=== PATIENT | male | born 1965 | race Caucasian/White ===

== ENCOUNTER → 2022-08-11 09:59 | Outpatient (CLI) | payer OTHER, SELFPAY ==
[2022-08-11 10:53] LABS: Add Manual Diff / Slide Review NO; Basophils Absolute Auto 0 /uL (0-100); Basophils Percent Auto 0.5 % (0-2); Eosinophils Absolute Auto 200 /uL (0-450); Eosinophils Percent Auto 3.8 % (2-4); Hematocrit 45.5 % (41-53); Hemoglobin 15.4 g/dL (13.5-17.5); Lymphocytes Absolute Auto 2500 /uL (1100-4500); Mean Corpuscular HGB Conc 33.8 % (30-36); Mean Corpuscular Hemoglobin 30.9 PG (26-34); Mean Corpuscular Volume 91.3 fL (80-100); Monocytes Absolute Auto 500 /uL (0-900); Neutrophils Absolute Auto 2600 /uL (1500-7000); Neutrophils Percent Auto 43.7 % (50-75); Platelet Count 231 X10^3/uL (150-400); Red Blood Cell Count 4.98 X10^6/uL (4.5-5.9); Red Cell Distribution Width 13.7 % (11.6-14.8); White Blood Cell Count 5.9 X10^3/uL (4.5-11.0)
[2022-08-11 18:54] LABS: Alanine Aminotransferase 89 IU/L (<50); Albumin 4.1 g/dL (3.5-5.0); Albumin Globulin Ratio 1.3 (1.0-2.8); Alkaline Phosphatase 66 U/L (38-126); Aspartate Aminotransferase 51 IU/L (17-59); BUN Creatinine Ratio 14.3 (6-22); Bilirubin Total 0.6 mg/dL (0.2-1.3); Blood Urea Nitrogen 16 mg/dL (9-20); Calcium 9.5 mg/dL (8.4-10.2); Carbon Dioxide 27 mmol/L (22-32); Chloride 105 mmol/L (98-107); Cholesterol 171 mg/dL (140-199); Estimated Glomerular Filt Rate > 60 mL/min (>60); Globulin 3.2 g/dL (1.7-4.1); Glucose 101 mg/dL (70-100); HDL Cholesterol 48 mg/dL (40-60); LDL Cholesterol Calculated 102 mg/dL (<100); Sodium 138 mmol/L (137-145); Total Protein 7.3 g/dL (6.3-8.2); Triglycerides 103 mg/dL (35-150)
[2022-08-11 18:56] LABS: HEMOLYSIS 16 (0-50); Potassium 4.1 mmol/L (3.4-5.1)
[2022-08-11 19:24] LABS: Prostate Specific Antigen 0.949 ng/mL (0.10-4.00)
== END ==
PROVIDERS: PCP Family Medicine; Referring Provider Family Medicine; Visit Provider Family Medicine
DX: Z00.00 Encounter for general adult medical examination without abnormal findings (principal)
CPT/HCPCS: 36415; 80053; 80061; 84153; 85025

== ENCOUNTER → 2023-03-10 10:16 | Outpatient (CLI) | payer OTHER, SELFPAY ==
--- NOTE | 2023-03-10 10:18 | DI.RAD.S_ITS ---
PROCEDURE: XR CERVICAL SPINE 2V OR 3V INDICATIONS: neck pain with radiculopathy TECHNIQUE: 3 view(s) of the cervical spine were acquired. COMPARISON: None. FINDINGS: Bones: No fractures or dislocations to the T1 level. There is straightening of normal cervical lordosis. Degenerative endplate changes are noted in lower cervical spine at C5-6 and C6-7 levels. The lateral masses of C1 appear intact on the odontoid view. No suspicious bony lesions. Soft tissues: No prevertebral soft tissue swelling. IMPRESSION: Degenerative disc disease in lower cervical spine. No cervical spine fracture or dislocation. Dictated by: Dominick Larson M.D. on 03/10/2023 at 16:18 Approved by: Dominick Larson M.D. on 03/10/2023 at 16:19
== END ==
PROVIDERS: PCP Family Medicine; Referring Provider Family Medicine; Visit Provider Family Medicine
DX: M50.322 Other cervical disc degeneration at C5-C6 level (principal)
CPT/HCPCS: 72040

== ENCOUNTER → 2023-11-10 09:19 | Outpatient (CLI) | payer OTHER, SELFPAY ==
[2023-11-10 12:38] LABS: Alanine Aminotransferase 53 IU/L (<50); Albumin 4.2 g/dL (3.5-5.0); Albumin Globulin Ratio 1.6 (1.0-2.8); Alkaline Phosphatase 76 U/L (38-126); Aspartate Aminotransferase 35 IU/L (17-59); BUN Creatinine Ratio 13.9 (6-22); Bilirubin Total 0.9 mg/dL (0.2-1.3); Blood Urea Nitrogen 15 mg/dL (9-20); Calcium 9.1 mg/dL (8.4-10.2); Carbon Dioxide 28 mmol/L (22-32); Chloride 106 mmol/L (98-107); Cholesterol 177 mg/dL (140-199); Estimated Glomerular Filt Rate > 60 mL/min (>60); Globulin 2.7 g/dL (1.7-4.1); Glucose 110 mg/dL (80-110); HDL Cholesterol 54 mg/dL (40-60); HEMOLYSIS < 15 (0-50); LDL Cholesterol Calculated 104 mg/dL (<100); Potassium 4.2 mmol/L (3.4-5.1); Sodium 138 mmol/L (137-145); Total Protein 6.9 g/dL (6.3-8.2); Triglycerides 93 mg/dL (35-150)
[2023-11-10 13:04] LABS: Prostate Specific Antigen 0.738 ng/mL (0.10-4.00)
== END ==
PROVIDERS: PCP Family Medicine; Referring Provider Family Medicine; Visit Provider Family Medicine
DX: Z00.00 Encounter for general adult medical examination without abnormal findings (principal); I10 Essential (primary) hypertension; N40.1 Benign prostatic hyperplasia with lower urinary tract symptoms; N13.8 Other obstructive and reflux uropathy
CPT/HCPCS: 36415; 80053; 80061; 84153

== ENCOUNTER 2023-11-12 11:33 | Day surgery (SDC) | payer OTHER, SELFPAY ==
[2023-11-12] MEDS: OXYMETAZOLINE NASAL SPRAY 30 ML 2 SPRAYS NASAL (13:17)
[2023-11-12] MEDS: LACTATED RINGERS 1,000 ML 42 ML IV (13:17)
[2023-11-12] MEDS: ACETAMINOPHEN 325 MG TABLET 975 MG PO (13:18)
[2023-11-12 13:21] VITALS: BP 137/92; PULSE 68; RESP 16; TEMP 36.1; O2SAT 97; BMI 29.8
--- NOTE | 2023-11-12 13:36 | P.OP_ITS ---
Operative Date/Time/Diagnoses Date of procedure: 11/12/23 Time of procedure: 14:59 Pre-op diagnosis: Left chronic maxillary sinusitis Post-op diagnosis: same Procedure & Clinicians Procedure: Left endoscopic maxillary antrostomy with tissue removal Same procedure as scheduled: Yes Indications: 58 Year old with the above diagnoses incompletely managed with medical therapy presents for the above procedure. Following discussion of the material risks benefits complications and alternatives, the patient elected to proceed. Surgeon: Frank Le Click Yes if Unassisted: Yes Anesthesia Type: General and Local Operative Notes Findings: Postoperative nasal cavity, with partial prior maxillary antrostomy enlarged by myself in all directions, also removed a scar band obstructing the antrostomy fr om prior. edematous mucosa throughout, tendency towards polyposis. Thick purulent solid and brown debris removed with instruments and irrigation from sinus, cultured. Postsurgical ethmoids not manipulated. Prior partial resection of anterior inferior turbinate and partial middle turbinate. Estimated Blood Loss (mL): 30 Procedure in detail: Following identification and confirmation of consent as well as preoperative Afrin nasal spray, the patient was brought to the operating room suite and placed in the supine position. General endotracheal anesthesia was administered. Under endoscopic guidance the posterior and anterior superior insertion of the left middle turbinate was then infiltrated with local anesthetic via spinal needle. The portions of residual uncinate process was identified with uncinectomy performed via the backbiting forceps and the microdebrider. Irrigation and instumentation removed a large amount of solid and purulent debris from within the maxillary sinus, along with portions of edematous and hypertrophied inflamed mucosa, overall enlarging the prior antrostomy significantly. Hemostasis with brief 1:1000 epi on pledgets, then focal areas of suction electrocautery on 10. The procedure completed, sponge and needle counts were correct and the patient was extubated in the operating room and taken to recovery room in stable condition without known complication. Complications: none Post-operative Condition: stable Disposition: same day surgery Plan for aftercare: Nasal saline every hour while awake, begin irrigations t.i.d. tomorrow. Tylenol alternating with Advil for pain control, oxycodone for breakthrough pain. Elevate head of bed, no nose blowing, no straining for 2 weeks.
--- NOTE | 2023-11-12 13:36 | PM.PREOP ---
Pre-operative Note Interval Note History & Physical reviewed/Exam performed by Physician: Yes Changes to H&P: No
--- NOTE | 2023-11-12 14:18 | SUR.OPER ---
Supine on padded OR bed, head on donut pillow, left arm secured on padded arm board at <90 degrees abduction, right arm padded and tucked on right side, legs uncrossed, safety belt at thigh, tape over blanket over lower legs.
[2023-11-12] MEDS: LIDOCAINE 1% W/EPI 20 ML INJ (14:23)
[2023-11-12] MEDS: EPINEPHrine 1 MG/ML 3 MG INJ (14:34)
[2023-11-12 15:07] VITALS: BP 141/86; PULSE 77; RESP 16; TEMP 36.1; O2SAT 95
[2023-11-12 15:11] VITALS: BP 134/88; PULSE 71; RESP 18; O2SAT 95
[2023-11-12 15:16] VITALS: BP 147/91; PULSE 67; RESP 17; O2SAT 93
[2023-11-12 15:23] VITALS: BP 145/94; PULSE 63; RESP 16; TEMP 36.2; O2SAT 93
[2023-11-12 15:28] VITALS: BP 143/94; PULSE 63; RESP 16; O2SAT 93
== END 2023-11-12 15:45 | disposition home or self-care (01) ==
PROVIDERS: PCP Family Medicine; Referring Provider Otolaryngology; Visit Provider Otolaryngology
PROC: (CPT 31231; principal; 2023-11-12 12:30)
DX: J32.0 Chronic maxillary sinusitis (principal)
CPT/HCPCS: 31267; 87070; 87075; 87077; 87147; 87205; J0171; J1100; J2250; J2405; J2704; J3010

== ENCOUNTER 2023-11-15 12:13 | Emergency (ER) | payer OTHER, SELFPAY ==
[2023-11-15 12:16] VITALS: BP 146/90; PULSE 92; RESP 18; TEMP 36.3; O2SAT 97; BMI 29.8
--- NOTE | 2023-11-15 12:27 | PC.NURSE ---
Bladder scan showing 394, educated patient meeting threshold for catheter, explained how enlarged bladder can cause constipation and can become a medical emergency especially given that patient states inability at this time to urinate. Patient does not want catheter, asking for suppository. Advised patient that provider recommended line and labs d/t protocol and specific complaint, educated that patient can decline any suggestion but that it can delay care. Nurse assigned to patient present for discussion.
--- NOTE | 2023-11-15 12:43 | DI.RAD.S_ITS ---
PROCEDURE: XR ACUTE ABDOMEN SERIES INDICATIONS: constipation TECHNIQUE: One view chest and two views of the abdomen were acquired. COMPARISON: None. FINDINGS: Surgical changes and devices: Surgical clips projecting over the pelvis.. Chest: Lungs are clear. Heart size is normal. No pleural effusions. No pneumoperitoneum. Abdomen: Bowel gas pattern is normal. Moderate stool burden. No suspicious calcifications. Visualized solid organ contours appear normal. Bones: No suspicious bony lesions. IMPRESSION: Moderate stool burden. Nonobstructive bowel gas pattern. Dictated by: Damion Rausch M.D. on 11/15/2023 at 13:25 Approved by: Damion Rausch M.D. on 11/15/2023 at 13:26
[2023-11-15 12:49] LABS: Add Manual Diff / Slide Review NO; Basophils Absolute Auto 0 /uL (0-100); Basophils Percent Auto 0.5 % (0-2); Eosinophils Absolute Auto 200 /uL (0-450); Hematocrit 43.2 % (41-53); Hemoglobin 14.7 g/dL (13.5-17.5); Lymphocytes Absolute Auto 2300 /uL (1100-4500); Lymphocytes Percent Auto 33.4 % (25-40); Mean Corpuscular Hemoglobin 31.4 PG (26-34); Mean Corpuscular Volume 92.5 fL (80-100); Monocytes Absolute Auto 600 /uL (0-900); Monocytes Percent Auto 8.5 % (3-14); Neutrophils Absolute Auto 3800 /uL (1500-7000); Neutrophils Percent Auto 54.6 % (50-75); Platelet Count 260 X10^3/uL (150-400); Red Blood Cell Count 4.67 X10^6/uL (4.5-5.9); Red Cell Distribution Width 13.6 % (11.6-14.8)
[2023-11-15 12:59] LABS: Alanine Aminotransferase 49 IU/L (<50); Albumin 4.1 g/dL (3.5-5.0); Albumin Globulin Ratio 1.5 (1.0-2.8); Alkaline Phosphatase 73 U/L (38-126); Aspartate Aminotransferase 32 IU/L (17-59); BUN Creatinine Ratio 20.4 (6-22); Bilirubin Total 0.5 mg/dL (0.2-1.3); Blood Urea Nitrogen 20 mg/dL (9-20); Calcium 8.4 mg/dL (8.4-10.2); Carbon Dioxide 22 mmol/L (22-32); Chloride 110 mmol/L (98-107); Estimated Glomerular Filt Rate > 60 mL/min (>60); Globulin 2.8 g/dL (1.7-4.1); Glucose 110 mg/dL (80-110); HEMOLYSIS 23 (0-50); Lipase 83 U/L (23-300); Potassium 3.8 mmol/L (3.4-5.1); Sodium 138 mmol/L (137-145); Total Protein 6.9 g/dL (6.3-8.2)
--- NOTE | 2023-11-15 13:51 | ED.ABDPAIN ---
HPI - Abdominal Pain General Chief Complaint: Abdominal Pain Stated Complaint: Constipation, Can't Urinate, post-surgery Time Seen by Provider: 11/15/23 13:50 Source: patient, family and RN notes reviewed Mode of arrival: Ambulatory Limitations: no limitations History of Present Illness HPI narrative: 58-year-old male with history of hypertension and recent sinus surgery who presents with complaint of constipation. Patient states he had sinus surgery several days ago he took 3 tablets of ibuprofen when she states normally constipated him in his more than what he normally takes. He states since then he has had bowel movements but they have been constipated and uncomfortable. He had a bowel movement yesterday which was pebbly moderate to small amount. He states today he feels like he needs to have a bowel movement but has not been able to he has a lot of pressure in the rectal area. He states it is uncomfortable. He has not had any fevers no nausea or vomiting. He states he feels little bit bloated. He denies any abdominal pain anteriorly. Patient denies any urinary symptoms no dysuria urgency or frequency. Patient states he has not tried anything [id number] besides Colace from 10 years ago. Patient does feel anxious about the constipation as he had an episode in the past where when he finally had a bowel movement he had a rip or tear of the rectal area and had bleeding for several days. Patient is on medication for blood pressure daily, denies any other prior abdominal surgeries states sinus surgeries his only prior surgery but did have anesthesia with this. No known drug allergies. He has not been taking any narcotics. No tobacco, no regular alcohol, no recreational drugs. Related Data Home Medications Medication Instructions Recorded Confirmed aspirin 81 mg tablet,delayed 81 mg PO DAILY 08/11/22 11/12/23 release (Adult Low Dose Aspirin) azelastine 137 mcg (0.1 %) nasal 1 spray intranasal DAILY 08/11/22 11/12/23 spray aerosol buspirone 10 mg tablet 10 mg PO DAILY 08/11/22 11/12/23 fluticasone propionate [Flonase] 2 spray intranasal DAILY 08/11/22 11/12/23 magnesium-potassium 99 mg- 90 mg 1 cap PO DAILY 08/11/22 11/12/23 capsule Previous Rx's Medication Instructions Recorded hydrochlorothiazide 25 mg tablet 25 mg PO DAILY #90 tabs 08/03/23 losartan 100 mg tablet 100 mg PO DAILY #90 tabs 09/08/23 tamsulosin 0.4 mg capsule 0.4 mg PO BID #180 caps 11/04/23 Allergies Allergy/AdvReac Type Severity Reaction Status Date / Time No Known Drug Allergies Allergy Verified 11/15/23 12:16 Review of Systems Review of Systems ROS Unobtainable: All systems reviewed & are unremarkable except as noted in HPI and below Patient History Medical History Esophageal reflux Benign essential tremor Recurrent otitis media Cervical spondylolysis Compression fracture of body of thoracic vertebra Anxiety with flying Colon polyps BPH (benign prostatic hyperplasia) Hypertension Well adult exam Acute otitis media Social History household members: spouse Smoking Status: Never smoker alcohol intake: current Smoking Status: Never smoker alcohol intake frequency: 0-2 drinks per day Substance Use Type: does not use Exam Narrative Exam Narrative: GENERAL: Alert and oriented x three, male in moderate distress. HEENT: Head normocephalic, atraumatic, EOMI, pupils reactive, face symmetric, moist mucous membranes NECK: Supple, full range of motion CARDIOVASCULAR: Regular rate and rhythm without murmurs, rubs or gallops. RESPIRATORY: Breath sounds equal bilaterally, no wheezes rales or rhonchi. ABDOMEN: Soft, nontender. Slightly distended. Normoactive bowel sounds all 4 quadrants. No guarding or rebound, rigidity, no mass : No CVA tenderness EXTREMITIES: Normal range of motion, no clubbing or edema. Neurovascularly intact NEUROLOGICAL: Cranial nerves II through XII grossly intact. Moving all extremities SKIN: Warm, dry, no petechiae, no rashes or lesions. Initial Vital Signs Initial Vital Signs: Vital Signs Temperature 97.4 F L 11/15/23 12:16 Pulse Rate 92 H 11/15/23 12:16 Respiratory Rate 18 11/15/23 12:16 Blood Pressure 146/90 H 11/15/23 12:16 Pulse Oximetry 97 11/15/23 12:16 Oxygen Delivery Method Room Air 11/15/23 12:16 Course Orders Ordered: ED Orders 11/15/23 12:27 EKG-12 Lead Stat 11/15/23 12:39 Complete Blood Count AUTO DIFF Stat Comprehensive Metabolic Panel Stat Lipase Stat 11/15/23 12:43 XR acute abdomen series Stat Discontinued Medications Mineral Oil (Mineral Oil 1 Each Enema) 1 each [place] NOW ONE Stop: 11/15/23 14:01 Last Admin: 11/15/23 14:23 Dose: 1 each Documented By: SIDDHARTHA Ondansetron HCl (Ondansetron 4 Mg/2 Ml Inj) 4 mg IV NOW PRN PRN Reason: Nausea And Vomiting Ondansetron HCl (Ondansetron 4 Mg Odt) 4 mg PO NOW PRN PRN Reason: Nausea And Vomiting Vital Signs Vital signs: Vital Signs - 8 hr 11/15/23 12:16 11/15/23 14:49 Temperature 97.4 F L 97.9 F Pulse Rate 92 H 76 Respiratory Rate 18 17 Blood Pressure 146/90 H 147/93 H Pulse Oximetry 97 95 Oxygen Delivery Method Room Air Room Air MDM - Abdominal Pain Lab Data 11/15/23 12:39 11/15/23 12:39 Labs: Lab Results 11/15/23 Range/Units 12:39 WBC 7.0 (4.5-11.0) X10^3/uL RBC 4.67 (4.5-5.9) X10^6/uL Hgb 14.7 (13.5-17.5) g/dL Hct 43.2 (41-53) % MCV 92.5 (80-100) fL MCH 31.4 (26-34) PG MCHC 34.0 (30-36) % RDW 13.6 (11.6-14.8) % Plt Count 260 (150-400) X10^3/uL Neut % (Auto) 54.6 (50-75) % Lymph % (Auto) 33.4 (25-40) % [place] % (Auto) 8.5 (3-14) % Eos % (Auto) 3.0 (2-4) % Baso % (Auto) 0.5 (0-2) % Neut # (Auto) 3800 (4404-7340) /uL Lymph # (Auto) 2300 (9521-4660) /uL [place] # (Auto) 600 (0-900) /uL Eos # (Auto) 200 (0-450) /uL Baso # (Auto) 0 (0-100) /uL Sodium 138 (137-145) mmol/L Potassium 3.8 (3.4-5.1) mmol/L Chloride 110 H (98-107) mmol/L Carbon Dioxide 22 (22-32) mmol/L BUN 20 (9-20) mg/dL Creatinine 0.98 (0.66-1.25) mg/dL Estimated GFR > 60 (>60) mL/min BUN/Creatinine Ratio 20.4 (6-22) Glucose 110 (80-110) mg/dL Calcium 8.4 (8.4-10.2) mg/dL Total Bilirubin 0.5 (0.2-1.3) mg/dL AST 32 (17-59) IU/L ALT 49 (<50) IU/L Alkaline Phosphatase 73 (38-126) U/L Total Protein 6.9 (6.3-8.2) g/dL Albumin 4.1 (3.5-5.0) g/dL Globulin 2.8 (1.7-4.1) g/dL Albumin/Globulin Ratio 1.5 (1.0-2.8) Lipase 83 (23-300) U/L Point of care testing: Urine Dip Bedside Urine Glucose Negative Bedside Urine Bilirubin - Negative Bedside Urine Ketone - Negative Urine Specific [place] 1.015 Bedside Urine Occult Blood - Negative Bedside Urine pH 6.0 Bedside Urine Protein - Negative Bedside Urine Urobilinogen - Negative Bedside Urine Nitrite - Negative Bedside Urine Leukocytes - Negative Esterase MDM Narrative Medical decision making narrative: White count of 7, blood 14.7 are 260, no leftward shift. Chloride 110 but otherwise normal electrolytes, renal function, LFTs. Point of care urine is negative or infection or blood. Patient had x-ray imaging, prelim review shows no obstructive changes. Patient felt he was having some difficulty urinating but was able to urinate postvoid residual was 100-150mL. Patient was requesting suppository but after discussion feels like enema might be more helpful. We will try this patient feels like he has a stool that is close she has a thin rectum and he tried personally to remove it but without success. Patient had enema, had success with large bowel movement and feels significantly improved he feels comfortable to return home. Discussed options for top down as well as using glycerin suppositories or enemas at home as needed. Discussed with patient likely his recent anesthesia cause some slowing of got transient and exacerbated his symptoms. Discharge Plan Departure Patient Disposition: Home Clinical Impression: Constipation Instructions: DI for Constipation Activity Restrictions/Additional Instructions: I hope you continue to feel improved. You can take Colace 1-2 tablets daily as needed for constipation. Make sure you are drinking plenty of fluids if using these medications. The magnesium citrate that you purchase you can drink half dose and if not helpful after for 5 hours can drink the rest. If you are having normal bowel movements you do not need these medications regularly. Can also use glycerin suppositories these are available [id number]. Please return for new or worsening abdominal back or flank pain, persistent vomiting, lightheadedness or passing out, if you are not having any bowel movements or passing flatus or other new or concerning changes. Prescriptions: No Action hydrochlorothiazide 25 mg tablet 25 mg PO DAILY Qty: 90 3RF losartan 100 mg tablet 100 mg PO DAILY Qty: 90 0RF tamsulosin 0.4 mg capsule 0.4 mg PO BID Qty: 180 0RF buspirone 10 mg tablet 10 mg PO DAILY Patient Comments: take 1 tablet by mouth every 8 hours if needed for insomnia or anxiety azelastine 137 mcg (0.1 %) aerosol,spray 1 spray intranasal DAILY Patient Comments: instill 2 sprays into each nostril twice a day aspirin [Adult Low Dose Aspirin] 81 mg tablet,delayed release (DR/EC) 81 mg PO DAILY fluticasone propionate [Flonase] 2 spray intranasal DAILY magnesium-potassium 99-90 mg capsule 1 cap PO DAILY Rx Instructions: 99 mg potassium 210 mg magnesium Referrals: Gnaga Manning DO [Primary Care Provider] - Stand Alone Forms: Patient Portal/API
[2023-11-15] MEDS: MINERAL OIL 1 EACH ENEMA PR (14:23)
[2023-11-15 14:49] VITALS: BP 147/93; PULSE 76; RESP 17; TEMP 36.6; O2SAT 95
== END 2023-11-15 14:50 | disposition home or self-care (01) ==
PROVIDERS: Emergency Provider Emergency Medicine; PCP Family Medicine
DX: K59.00 Constipation, unspecified (principal); R39.198 Other difficulties with micturition
CPT/HCPCS: 36415; 51798; 74022; 80053; 81003; 83690; 85025; 99283

== ENCOUNTER → 2024-06-23 07:56 | Outpatient (CLI) | payer OTHER, SELFPAY ==
--- NOTE | 2024-06-23 07:58 | DI.NM.S_ITS ---
PROCEDURE: NM EXERCISE TREADMILL NON NUC COMPARISON: None. INDICATIONS: exertional fatigue and dyspnea FINDINGS: Patient exercised per the standard [facility] protocol. Total exercise time was 10 minutes and 12 seconds. Test was terminated secondary to fatigue. Maximal heart rate obtained is 158 bpm which is 99% of max predicted heart rate. Maximum blood pressure 170/[place] [address]. TONY -17%. 11 METS. No ischemic changes noted. No arrhythmias noted. No chest pains voiced. Normal heart rate and blood pressure response to exercise. IMPRESSION: 1. Negative exercise treadmill stress test for ischemia. 2. Above average exercise tolerance. Dictated by: Dylon Larson M.D. on 06/23/2024 at 16:56 Approved by: Dylon Larson M.D. on 06/23/2024 at 16:57
== END ==
LOC: NUCM 07:57
PROVIDERS: PCP Family Medicine; Referring Provider Family Medicine; Visit Provider Family Medicine
DX: T73.3XXA Exhaustion due to excessive exertion, initial encounter (principal); I10 Essential (primary) hypertension; R06.09 Other forms of dyspnea
CPT/HCPCS: 93017